=== PATIENT | female | born 1990 | race Caucasian/White ===

== ENCOUNTER 2016-06-24 00:25 | Emergency (ER) | payer SELFPAY ==
[~2016-06-24] VITALS: Ht 175.3 cm; Wt 70.0 kg
[~2016-06-24 00:25] MED LIST: ALPR1 PO; CLIN1CAP6 PO; DEXT30TA PO; HYDR-3580 PO; LACTGRA PO; PRIS50TA PO
[2016-06-24 00:35] VITALS: BP 122/82; PULSE 98; RESP 16; TEMP 97.9; O2SAT 95
--- NOTE | 2016-06-24 01:23 | PD ---
HPI Chief Complaint: OD/ Ingestion Time Seen by Provider: 00:47 Travel History International Travel<30 days: No Contact w/Intl Traveler<30days: No Traveled to known affect area: No History of Present Illness HPI Patient is a 26-year-old female who comes in after using heroin tonight. She also admits taking his Xanax earlier today. Her friend brought her in because he was concerned she overdosed. She has no complaints. She is a little sleepy , but is asking to leave. She says she wants to go smoke a cigarette. She denies any pains. She has any chest pain or shortness of breath. Denies any fevers or chills. PFSH Past Medical History Bipolar Disorder: Yes Diminished Hearing: No Medical other: Yes (drug abuse) Immunizations Current: Yes Tetanus Vaccination: Unknown Influenza Vaccination: No ?: Not LMP: Menopausal: No : 0 Para: 0 Past Surgical History Other Surgery: Yes (NOSE) Social History Alcohol Use: No Tobacco Use: Yes (1ppd) Substance Use: Yes (meth) Allergies-Medications (Allergen,Severity, Reaction): Coded Allergies: No Known Allergies (Unverified , 02/15/16) Reported Meds & Prescriptions Reported Meds & Active Scripts Active Lactinex (Lactobacillus Acidophilus) 1 Gm Gra 1 Gm PO TID 10 Days Clindamycin Hcl (Clindamycin HCl) 300 Mg Cap 300 Mg PO QID 10 Days Hydrocodone/Acetaminophen 7.5 mg/325 mg 1 Tab 1 Tab PO Q4H PRN Dextroamphetamine/Amphetamine 30 Mg Tab 30 Mg PO BID 7 Days Xanax (Alprazolam) 1 Mg Tab 1 Mg PO BID PRN 7 Days Reported Pristiq (Desvenlafaxine Succinate) 50 Mg Jose C 50 Mg PO DAILY 30 Days Review of Systems General / Constitutional: No: Fever, Chills HENT: No: Headaches Cardiovascular: No: Chest Pain or Discomfort Respiratory: No: Shortness of Breath Gastrointestinal: No: Nausea, Vomiting Musculoskeletal: No: Weakness Skin: No Change in Pigmentation Neurologic: No: Weakness, Dizziness Physical Exam Narrative GENERAL: Awake and alert, in no acute distress. Sleepy, but easily awakens. SKIN: Warm and dry. HEAD: Atraumatic. Normocephalic. EYES: Pupils equal and round. No scleral icterus. ENT: No nasal bleeding or discharge. Mucous membranes pink and moist. CARDIOVASCULAR: Regular rate and rhythm. No murmur appreciated. RESPIRATORY: No accessory muscle use. Clear to auscultation. Breath sounds equal bilaterally. MUSCULOSKELETAL: No obvious deformities. No clubbing. No cyanosis. No edema. NEUROLOGICAL: Awake and alert. No obvious cranial nerve deficits. Motor grossly within normal limits. Normal speech. PSYCHIATRIC: Appropriate mood and affect; insight and judgment normal. Data Data Last Documented VS Vital Signs Date Time Temp Pulse Resp B/P Pulse Ox O2 Delivery O2 Flow Rate FiO2 06/24/16 00:39 94 Room Air 06/24/16 00:35 97.9 98 16 122/82 [facility] Medical Decision Making Medical Screen Exam Complete: Yes Emergency Medical Condition: Yes Medical Record Reviewed: Yes Differential Diagnosis Opiate overdose versus benzodiazepine use versus alcohol abuse Narrative Course Patient is a 26-year-old female who comes in after using heroin today. Her friend brought her in because he is concerned she overdose. Patient is awake and alert, she occasionally falls asleep. She is protecting her airway. Patient told she needs to stay and sleep off the heroin. After leaving the room , patient became adamant that she needed to leave. She came back and forth to the nurse's desk saying she was going to leave. Patient was awake, clearly protecting her airway. Patient discharged with her friend. He will keep an eye on her and bring her back if anything changes. Patient advised to refrain from heroin use in the future. Diagnosis Primary Impression: Drug abuse Patient Instructions: General Instructions, Narcotic Abuse (ED) Departure Forms: Tests/Procedures Additional Instructions: Refrain from using heroine or other narcotic drugs. Follow up with your doctor. Return to the ED as needed for any worsening symptoms. Disposition: 01 DISCHARGE HOME Condition: Stable Irene Castro MD Jun 24, 2016 01:23
== END 2016-06-24 05:00 | disposition home or self-care (01) ==
LOC: NEPE 00:25
DX: F19.10 Other psychoactive substance abuse, uncomplicated (principal); F31.9 Bipolar disorder, unspecified; F17.210 Nicotine dependence, cigarettes, uncomplicated; F11.90 Opioid use, unspecified, uncomplicated
CPT/HCPCS: 99283

== ENCOUNTER 2016-09-27 21:22 | Emergency (ER) | payer OTHER ==
[~2016-09-27] VITALS: Ht 175.3 cm; Wt 70.0 kg
[2016-09-27 21:25] VITALS: BP 116/81; PULSE 87; RESP 18; TEMP 98.5; O2SAT 99
--- NOTE | 2016-09-27 21:50 | PD ---
Physical Exam Time Seen by Provider: 21:45 Narrative 26 year old female with history of IVDU presents to the ED for evaluation of an abscess on the lateral right thigh worsening over the last 8 days. Pt states the abscess is at the site of an injection. She has had subjective fever and chills yesterday but no fever today. . Pt states the pain is isolated to her abscess area and rates it a 7/10, exacerbated by movement or touch. Pt has history of bipolar and anxiety and hepatitis C. Data Data Last Documented VS Vital Signs Date Time Temp Pulse Resp B/P Pulse Ox O2 Delivery O2 Flow Rate FiO2 09/27/16 21:25 98.5 87 18 116/81 99 MDM Medical Record Reviewed: Yes Supervised Visit with MARY: No Narrative Course 26 year old female presents to the ED for evaluation of an abscess on her Right thigh where she injected dilaudid 8 days ago. Appears without distress. VSS Condition: Stable Talisha Aggarwal Sep 27, 2016 21:50
[2016-09-27] MEDS ORDERED: SULFAMETHOXAZOLE-TRIMETHOPRIM DS 800-160 MG TAB PO ONE (22:00)
[2016-09-27] MEDS ORDERED: LIDOCAINE 1%/EPINEPHrine 1:100,000 SOLN 20 ML VIAL INFIL ONE (22:00)
[2016-09-27] MEDS ORDERED: CEPHALEXIN MONOHYDRATE 500 MG CAP PO ONE (22:00)
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
[2016-09-27] MEDS ORDERED: DOXE100C4 PO (22:03)
[2016-09-27] MEDS ORDERED: ADDE30TA PO (22:03)
[2016-09-27] MEDS ORDERED: TRIL300T PO (22:03)
[2016-09-27] MEDS ORDERED: XANA2TAB2 PO ×2 (22:03→22:15)
[2016-09-27] MEDS ORDERED: GABA800T PO (22:03)
[2016-09-27] MEDS ORDERED: PRIS100T PO (22:03)
[2016-09-27] MEDS ORDERED: SERO200T PO (22:03)
[2016-09-27] MEDS ORDERED: BACT800T5 PO (22:04)
[2016-09-27] MEDS ORDERED: CEPH-460 PO (22:04)
== END 2016-09-27 22:41 | disposition home or self-care (01) ==
LOC: NEPK 21:22
DX: L03.115 Cellulitis of right lower limb (principal); F31.9 Bipolar disorder, unspecified; Z72.0 Tobacco use; A49.01 Methicillin susceptible Staphylococcus aureus infection, unspecified site
CPT/HCPCS: 10060; 86403; 87070; 87186; 87205